=== PATIENT | female | born 1960 | race Caucasian/White ===

== ENCOUNTER 2017-02-19 05:56 | Emergency (ER) | payer OTHER ==
[~2017-02-19] VITALS: Ht 167.6 cm; Wt 88.5 kg
[2017-02-19] MEDS ORDERED: PROMETHAZINE 25 MG/ML, 1ML ONE (06:13)
[2017-02-19] MEDS ORDERED: MECLIZINE CHEWABLE 25 MG TAB ONE (06:13)
[2017-02-19] MEDS ORDERED: IBUP400T PO (06:23)
[2017-02-19] MEDS ORDERED: RANI150T8 PO (06:23)
[2017-02-19] MEDS ORDERED: MECLIZINE CHEWABLE 25 MG TAB PO ONE (06:30)
[2017-02-19] MEDS ORDERED: SODIUM CHLORIDE FLUSH 10ML SYR IVF ONE (06:30)
[2017-02-19] MEDS ORDERED: SODIUM CHLORIDE 0.9% 1,000ML IVBOLUS ONE (06:30)
[2017-02-19] MEDS ORDERED: PROMETHAZINE 25 MG/ML, 1ML IM ONE (07:00)
[2017-02-19 07:02] LABS: PATH.CAST-FLAG NOT PRESENT; SPERM-FLAG NOT PRESENT; SRC-FLAG NOT PRESENT; XTAL-FLAG NOT PRESENT; YLC-FLAG NOT PRESENT
[2017-02-19 07:03] LABS: ASPARTATE AMINO TRANSFERASE 15 U/L (15-37); BLOOD UREA NITROGEN 10 mg/dL (7-18)
[2017-02-19 07:07] LABS: IS PT STATUS REG ER OR PRE ER? YES
[2017-02-19 07:48] VITALS: BP 128/65
[2017-02-19] MEDS ORDERED: DIAZEPAM 5 MG/ML, 2ML IV ONE (08:30)
[2017-02-19] MEDS ORDERED: GADOBUTROL 10 MMOL/10 ML PFS ONE (08:58)
== END 2017-02-19 10:31 | disposition home or self-care (01) ==
LOC: ED 06:48
DX: H81.10 Benign paroxysmal vertigo, unspecified ear (principal); G43.909 Migraine, unspecified, not intractable, without status migrainosus; Z90.49 Acquired absence of other specified parts of digestive tract
CPT/HCPCS: 36415; 70553; 80053; 81001; 83605; 84484; 85025; 87086; 93005; 96372; 96374; 99285; A9585; J2550; J3360; J7030